=== PATIENT | female | born 1995 | race Caucasian/White ===

== ENCOUNTER 2024-04-29 03:50 | Emergency (ER) | payer SELFPAY ==
--- NOTE | ~2024-04-29 | XR_ITS ---
EXAMINATION: XR abdomen/kub 1V DATE: 04/29/2024 06:02 INDICATION: Withdrawals. Nausea, vomiting and diarrhea. TECHNIQUE: A supine view of the abdomen was obtained. COMPARISON: None. FINDINGS: There are few scattered partially gas-filled but nondilated loops of large and small bowel scattered throughout the abdomen and pelvis. Bones are unremarkable. Costophrenic angles are clear with no pleu ral effusion. IMPRESSION: 1. Normal bowel gas pattern. Reviewed, dictated and finalized at location A.
[2024-04-29 04:00] VITALS: BP 118/62; PULSE 62; RESP 14; TEMP 36.7; O2SAT 100
[2024-04-29] MEDS: BUPRENORPHINE/NALOXONE (*CRX) 4 MG/1 MG SL FILM 2 EACH SUBLINGUAL (04:20)
[2024-04-29] MEDS: ONDANSETRON HCL ODT 4 MG TABLET PO (04:20)
[2024-04-29 06:00] VITALS: BP 108/60; PULSE 67; RESP 14; O2SAT 100
[2024-04-29] MEDS: BUPRENORPHINE/NALOXONE (*CRX) 4 MG/1 MG SL FILM 4 EACH SUBLINGUAL (06:00)
--- NOTE | 2024-04-29 07:59 | ED.PROGRESS ---
Subjective Date/time seen: 04/29/24 07:59 Interval history: Patient seen and examined during [facility] EMR downtime. Please refer to downtime documentation for notes, orders, and the HPI, ROS, examination, DDx, MDM, and disposition Objective Data Vital Signs Vital Signs: Vital Signs - 24 hr 04/29/24 04:00 04/29/24 06:00 Temperature 36.7 C Pulse Rate 62 67 Respiratory Rate 14 14 Blood Pressure 118/62 108/60 Pulse Oximetry 100 100 Oxygen Delivery Room Air Meds/Results Radiology Results: ITS Impressions Abdomen X-Ray 04/29/24 06:36 IMPRESSION: 1. Normal bowel gas pattern.
== END 2024-04-29 07:33 ==
PROVIDERS: Emergency Provider Student in an Organized Health Care Education/Training Program
DX: F11.23 Opioid dependence with withdrawal (principal); R11.2 Nausea with vomiting, unspecified; R19.7 Diarrhea, unspecified
CPT/HCPCS: 74018; 99283; A9270